=== PATIENT | male | born 1980 | race Two or more races ===

== ENCOUNTER 2017-03-20 13:35 | Inpatient (IN) | payer OTHER ==
[2017-03-20] MEDS ORDERED: SODIUM CHLORIDE 0.9% 1,000 ML IV STA (13:58)
--- NOTE | 2017-03-20 14:06 | ED ---
Alcohol HPI - General Chief Complaint: Alcohol Stated Complaint: Alcohol withdraw Time Seen by Provider: 03/20/17 13:35 Source: patient, EMS, RN notes reviewed Mode of arrival: EMS Limitations: no limitations - History of Present Illness Initial Comments: This is a 36-year-old male with a history of alcoholism who states he try to get into [facility] today for detox was sent here for evaluation. Several things of note the patient did recently donated kidney in [facility] in December of this past year. Additionally through the withdrawal from alcohol he normally drinks one half fists of vodka per day he ran out around 4 AM this morning he drank a bottle of hand customer relationship specialist (purell), 3 cups of the nature alcohol and a bottle of scope mouthwash. He also states she's feeling depressed and suicidal. He also feels as if he is going through shakes at this time. He feels very anxious. He was sent here for evaluation and possible clearance by [facility]. MD Complaint: alcohol withdrawal, alcohol dependence - Related Data Home Medications Medication Instructions Recorded Confirmed No Known Home Medications [No 03/20/17 03/20/17 Known Home Medications] Allergies Allergy/AdvReac Type Severity Reaction Status Date / Time No Known Allergies Allergy Unverified 03/20/17 14:10 Review of Systems ROS Statement: Those systems with pertinent positive or pertinent negative responses have been documented in the HPI. ROS Other: All systems not noted in ROS Statement are negative. Past Medical History Past Medical History: No Reported History History of Any Multi-Drug Resistant Organisms: None Reported Past Surgical History: Appendectomy Additional Past Surgical History / Comment(s): donated a kidney in 12/2016, skin grafts to right leg Past Psychological History: Anxiety, Bipolar, Depression, PTSD Smoking Status: Current every day smoker Past Alcohol Use History: Abuse, Daily Past Drug Use History: Marijuana General Exam - General Exam Comments Initial Comments: This is a well-developed well-nourished awake alert anxious appearing male Limitations: no limitations General appearance: alert, anxious Head exam: Present: atraumatic, normocephalic, normal inspection Eye exam: Present: PERRL, EOMI, other (Slight conjunctival injection) ENT exam: Present: normal exam, mucous membranes moist Neck exam: Present: normal inspection. Absent: tenderness, meningismus, lymphadenopathy Respiratory exam: Present: normal lung sounds bilaterally. Absent: respiratory distress, wheezes, rales, rhonchi, stridor Cardiovascular Exam: Present: normal rhythm, tachycardia GI/Abdominal exam: Present: tenderness (Epigastric tenderness palpation no definite guarding rebound masses or bruits) Rectal exam: Present: deferred Extremities exam: Present: full ROM, normal capillary refill, other (Fine tremor noted in both hands.). Absent: tenderness Back exam: Present: normal inspection Neurological exam: Present: alert, oriented X3, CN II-XII intact. Absent: motor sensory deficit Psychiatric exam: Present: depressed, anxious Skin exam: Present: warm, dry, intact, normal color. Absent: rash Course Vital Signs 03/20/17 03/20/17 13:42 15:04 Temperature 98.6 F Pulse Rate 108 H 109 H Respiratory 18 16 Rate Blood Pressure 168/101 155/89 O2 Sat by Pulse 95 96 Oximetry - Reevaluation(s) Reevaluation #1: 03/20/17 15:57 The patient did require some Ativan due to anxiety and shaking. Reevaluation #2: 03/20/17 16:05 The patient does appear to be resting comfortably he still tachycardic at about 116 -120 bpm. Reevaluation #3: 03/20/17 16:15 Poison control was contacted. They did recommend using the CIWA protocol. Due to the elevated liver enzymes Mucomyst is considered also. Medical Decision Making - Medical Decision Making Patient continues rest comfortably still somewhat tachycardic. Did discuss the findings with him. Patient will be admitted I did discuss case with Dr. De Dios. - Lab Data Result diagrams: 03/20/17 14:55 03/20/17 14:55 Lab Results 03/20/17 03/20/17 03/20/17 Range/Units 14:55 14:55 14:55 WBC 5.5 (3.8-10.6) k/uL RBC 5.28 (4.30-5.90) m/uL Hgb 16.2 (13.0-17.5) gm/dL Hct 48.4 (39.0-53.0) % MCV 91.5 (80.0-100.0) fL MCH 30.7 (25.0-35.0) pg MCHC 33.5 (31.0-37.0) g/dL RDW 15.4 (11.5-15.5) % Plt Count 221 (150-450) k/uL Neutrophils % 60 % Lymphocytes % 28 % Monocytes % 10 % Eosinophils % 1 % Basophils % 1 % Neutrophils # 3.3 (1.3-7.7) k/uL Lymphocytes # 1.6 (1.0-4.8) k/uL Monocytes # 0.5 (0-1.0) k/uL Eosinophils # 0.0 (0-0.7) k/uL Basophils # 0.0 (0-0.2) k/uL PT 10.9 (9.0-12.0) sec INR 1.1 (<1.2) Sodium 137 (137-145) mmol/L Potassium 4.4 (3.5-5.1) mmol/L Chloride 95 L (98-107) mmol/L Carbon Dioxide 24 (22-30) mmol/L Anion Gap 18 mmol/L BUN 16 (9-20) mg/dL Creatinine 1.11 (0.66-1.25) mg/dL Est GFR (MDRD) Af Amer >60 (>60 ml/min/1.73 sqM) Est GFR (MDRD) Non-Af >60 (>60 ml/min/1.73 sqM) Glucose 106 H (74-99) mg/dL Osmolality 380 H* (280-301) mosm/kg Calcium 9.3 (8.4-10.2) mg/dL Magnesium 2.1 (1.6-2.3) mg/dL Total Bilirubin 1.9 H (0.2-1.3) mg/dL AST 105 H (17-59) U/L ALT 117 H (21-72) U/L Alkaline Phosphatase 128 H (38-126) U/L Total Protein 7.2 (6.3-8.2) g/dL Albumin 4.8 (3.5-5.0) g/dL Amylase 103 (30-110) U/L Lipase 239 (23-300) U/L Salicylates <1.0 mg/dL Acetaminophen <10.0 ug/mL Serum Alcohol 11 mg/dL - EKG Data -: EKG Interpreted by Me EKG shows normal: sinus rhythm (Sinus tachycardia rate 105 appear interval 124 QRS duration 84 QT since QTC 340/449 st-t wave changes.) Critical Care Time Critical Care Time: Yes Critical Care Time: 31 minutes of critical care time which includes initial discussion with paramedics and monitoring the EMS run. History physical labs x-rays. Several reevaluation patient responsive therapy. Discussion regarding the poison control recommendations. Discussed with the admitting service Dr. feliciano above admission orders. Disposition Clinical Impression: Alcohol withdrawal syndrome, Depression, Suicidal thoughts Disposition: ADMITTED IP TO THIS [facility] Condition: Stable Referrals: None,Stated [Primary Care Provider] - 1-2 days
[2017-03-20] MEDS ORDERED: SODIUM CHLORIDE 0.9% 1,000 ML with MVI, ADULT NO.4 WITH VIT K 10 ML, THIAMINE 100 MG, F... IV ONE ×4 (14:30)
[2017-03-20 15:04] LABS: Basophils % (A) 1 %; Eosinophils % (A) 1 %; HCT 48.4 % (39.0-53.0); HGB 16.2 gm/dL (13.0-17.5); Lymphocytes # (A) 1.6 k/uL (1.0-4.8); Lymphocytes % (A) 28 %; MCH 30.7 pg (25.0-35.0); MCHC 33.5 g/dL (31.0-37.0); MCV 91.5 fL (80.0-100.0); Mean Platelet Volume 6.6; Monocytes # (A) 0.5 k/uL (0-1.0); Monocytes % (A) 10 %; Neutrophils # (A) 3.3 k/uL (1.3-7.7); Neutrophils % (A) 60 %; Platelet Count 221 k/uL (150-450); RBC 5.28 m/uL (4.30-5.90); RDW 15.4 % (11.5-15.5); WBC 5.5 k/uL (3.8-10.6)
[2017-03-20] MEDS ORDERED: LORazepam 2 MG/ML INJ IV STA (15:08)
[2017-03-20 15:14] LABS: INR 1.1 (<1.2); Prothrombin Time 10.9 sec (9.0-12.0)
[2017-03-20 15:16] LABS: ALT 117 U/L (21-72); AST 105 U/L (17-59); Acetaminophen <10.0 ug/mL; Albumin 4.8 g/dL (3.5-5.0); Alcohol 11 mg/dL; Alkaline Phosphatase 128 U/L (38-126); Amylase 103 U/L (30-110); Anion Gap 18 mmol/L; Blood Urea Nitrogen 16 mg/dL (9-20); Calcium 9.3 mg/dL (8.4-10.2); Carbon Dioxide 24 mmol/L (22-30); Chloride 95 mmol/L (98-107); Glucose 106 mg/dL (74-99); Lipase 239 U/L (23-300); Magnesium 2.1 mg/dL (1.6-2.3); Potassium 4.4 mmol/L (3.5-5.1); Salicylate <1.0 mg/dL; Sodium 137 mmol/L (137-145); Total Bilirubin 1.9 mg/dL (0.2-1.3); Total Protein 7.2 g/dL (6.3-8.2)
[2017-03-20] MEDS ORDERED: NALOXONE 0.4 MG/ML 1 ML VIAL IV PRN ×2 (16:39→18:05)
[2017-03-20] MEDS ORDERED: THIAMINE 100 MG/ML 2 ML VIAL IM STA (16:42)
[2017-03-20] MEDS ORDERED: LORazepam 2 MG/ML INJ IV PRN (16:42)
[2017-03-20] MEDS ORDERED: FOMEPIZOLE IVPB STA ×2 (17:07→17:14)
[2017-03-20] MEDS ORDERED: SODIUM CHLORIDE 0.9% IVPB STA (17:14)
[2017-03-20] MEDS ORDERED: ONDANSETRON 4 MG/2 ML VIAL IVP STA (18:18)
--- NOTE | 2017-03-20 18:21 | P.HPIM ---
History of Present Illness H&P Date: 03/20/17 Chief Complaint: Overdose 36-year-old male with a history of alcoholism who presented to emergency department for alcohol detoxification. He normally drinks one and a half fifth of vodka per day, he ran out of it around 4 AM this morning and then drank a bottle of hand outcomes analyst (purell), 3 cups of the denatured alcohol and a bottle of scope mouthwash. He denied taking those to attempt suicide, just to get the alcohol. When he was in the emergency department he had some bad shaking and was treated with benzodiazepine for ETOH withdrawal. Patient stated that he went through alcohol withdrawal about 2 weeks ago and he was in a hospital in [place] for that. Patient has an alcohol problem, has been drinking for 1 months but before that was sober for about 2 years. Of note patient recently donated a kidney in [facility] in December of this past year. Emergency physician called poison control and he was advised to just monitor the patient in the hospital, no specific treatment recommendations were advised. Review of Systems 12 point review of system was performed, negative except for HPI Past Medical History Past Medical History: No Reported History History of Any Multi-Drug Resistant Organisms: None Reported Past Surgical History: Appendectomy Additional Past Surgical History / Comment(s): donated a kidney in 12/2016, skin grafts to right leg Past Psychological History: Anxiety, Bipolar, Depression, PTSD Smoking Status: Current every day smoker Past Alcohol Use History: Abuse, Daily Past Drug Use History: Marijuana Medications and Allergies Home Medications Medication Instructions Recorded Confirmed Type No Known Home Medications [No 03/20/17 03/20/17 History Known Home Medications] Allergies Allergy/AdvReac Type Severity Reaction Status Date / Time No Known Allergies Allergy Unverified 03/20/17 14:10 Physical Exam Vitals: Vital Signs Temp Pulse Resp BP Pulse Ox 03/20/17 15:04 109 H 16 155/89 96 03/20/17 13:42 98.6 F 108 H 18 168/101 95 Intake and Output 03/20/17 03/20/17 03/20/17 06:59 14:59 22:59 Other: Weight 108.862 kg Patient Weight 03/21/17 06:59 Weight 108.862 kg Constitutional: No acute distress, conversant, pleasant Eyes:Anicteric sclerae, moist conjunctiva, no lid-lag, PERRLA, ENMT: Oropharynx clear, no erythema, exudates Neck: Supple, FROM, no masses, or JVD, No carotid bruits, No thyromegaly Lungs: Clear to auscultation, Clear to percussion, Normal respiratory effort, no accessory muscle use Cardiovascular: Tachycardic, regular, No murmurs, gallops, or rubs, No peripheral edema Abdominal: Soft, Nontender, no guarding, rebound or rigidity, Normoactive bowel sounds, No hepatomegaly, No splenomegaly, No palpable mass Skin: Normal temperature, tone, texture, turgor, no induration, No subcutaneous nodules, No rash, lesions, No ulcers Extremities: No digital cyanosis, No clubbing, Pedal pulses intact and symmetrical, Radial pulses intact and symmetrical, No calf tenderness Psychiatric: Alert and oriented to person, place and time, appropriate affect, intact judgement Neuro: Bilateral arms/hands tremors, muscles Strength 5/5 in all 4 extremities, Sensation to light touch grossly present throughout, Cranial nerves II-XII grossly intact, no focal sensory deficits Results CBC & Chem 7: 03/20/17 14:55 03/20/17 14:55 Labs: Abnormal Lab Results - Last 24 Hours (Table) 03/20/17 Range/Units 14:55 Chloride 95 L (98-107) mmol/L Glucose 106 H (74-99) mg/dL Osmolality 380 H* (280-301) mosm/kg Total Bilirubin 1.9 H (0.2-1.3) mg/dL AST 105 H (17-59) U/L ALT 117 H (21-72) U/L Alkaline Phosphatase 128 H (38-126) U/L Assessment and Plan Plan: #1 Multi-substance poisoning: Poison control called in the emergency department Monitor patient Labs reviewed. #2 Alcoholism/delirium tremens ETOH withdrawal protocol Multi vitamins Thiamine Folic acid #3 Questionable suicide attempt Psychiatry consult
[2017-03-20] MEDS: LORazepam 2 MG/ML INJ IV PRN ×2 (18:25→23:00)
[2017-03-20] MEDS: SODIUM CHLORIDE 0.9% 1,000 ML IV SCH (22:59)
[2017-03-20] MEDS: THIAMINE 100 MG TAB PO SCH (23:00)
[2017-03-21 01:50] LABS: Glucose,Whole Blood 110 mg/dL (75-99)
[2017-03-21] MEDS: SODIUM CHLORIDE 0.9% 1,000 ML IV SCH ×6 (04:42→21:47)
[2017-03-21] MEDS ORDERED: FOMEPIZOLE IVPB ONE ×2 (06:30→22:00)
[2017-03-21] MEDS ORDERED: SODIUM CHLORIDE 0.9% IVPB ONE ×2 (06:30→22:00)
[2017-03-21 08:20] LABS: Glucose,Whole Blood 96 mg/dL (75-99)
[2017-03-21 09:33] LABS: ALT 81 U/L (21-72); AST 65 U/L (17-59); Albumin 3.5 g/dL (3.5-5.0); Alkaline Phosphatase 86 U/L (38-126); Anion Gap 9 mmol/L; Blood Urea Nitrogen 15 mg/dL (9-20); Calcium 8.7 mg/dL (8.4-10.2); Carbon Dioxide 29 mmol/L (22-30); Chloride 101 mmol/L (98-107); Glucose 101 mg/dL (74-99); Magnesium 1.7 mg/dL (1.6-2.3); Phosphorus 3.4 mg/dL (2.5-4.5); Sodium 139 mmol/L (137-145); Total Protein 5.5 g/dL (6.3-8.2)
[2017-03-21] MEDS: LORazepam 2 MG/ML INJ IV PRN ×4 (09:43→23:28)
[2017-03-21 09:47] LABS: Anisocytosis Slight; Basophils % (A) 1 %; Eosinophils # (A) 0.1 k/uL (0-0.7); Eosinophils % (A) 1 %; HCT 38.9 % (39.0-53.0); Lymphocytes # (A) 1.5 k/uL (1.0-4.8); Lymphocytes % (A) 26 %; MCH 30.5 pg (25.0-35.0); MCHC 32.8 g/dL (31.0-37.0); MCV 92.9 fL (80.0-100.0); Mean Platelet Volume 7.4; Monocytes # (A) 0.5 k/uL (0-1.0); Monocytes % (A) 9 %; Neutrophils # (A) 3.7 k/uL (1.3-7.7); Neutrophils % (A) 63 %; Platelet Count 163 k/uL (150-450); RBC 4.19 m/uL (4.30-5.90); RDW 16.2 % (11.5-15.5); WBC 5.9 k/uL (3.8-10.6)
[2017-03-21 09:52] LABS: HGB 12.8 gm/dL (13.0-17.5)
[2017-03-21] MEDS ORDERED: CALCIUM CARBONATE 500 MG CHEWABLE PO PRN (10:14)
[2017-03-21] MEDS ORDERED: ACETAMINOPHEN TAB 325 MG TAB PO PRN (10:14)
--- NOTE | 2017-03-21 10:59 | P.NPCON ---
History of Present Illness - Reason for Consult chronic renal failure - History of Present Illness Reason for consultation: June 30 all poisoning History of present illness: Patient is a 77-year-old male seen in renal consultation for methanol poisoning. Patient states he usually drinks fifth and a half of vodka daily. 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 Patient's currently maintained on normal saline at 1 25 mL an hour. He did receive a dose of fomepizole last night and a second dose this morning. Poison control was notified as well. His methanol level came back as greater than 200. Acetone is noted to be positive. Patient was noted to have an anion gap on admission and his serum osmolality was elevated at 380. His anion gap today is 9. Creatinine is relatively stable at 1.18. No evidence of acidosis. His bicarb level is 29. He denies any vomiting or diarrhea. Denies chest pain or shortness of breath. He has been voiding. Patient does have history of chronic kidney disease stage II secondary to solitary kidney. Patient states he donated his kidney to his brother in December 2016. No history of diabetes or hypertension. Vital signs are stable. General: The patient appeared well nourished and normally developed. HEENT: Head exam is unremarkable. Neck is without jugular venous distension. LUNGS: Lungs are clear to auscultation and percussion. Breath sounds decreased. HEART: Rate and Rhythm are regular. First and second heart sounds normal. No murmurs, rubs or gallops. ABDOMEN: Abdominal exam reveals normal bowel sounds. Non-tender and non- distended. No evidence of peritonitis. EXTREMITITES: No clubbing, cyanosis, or edema. Past Medical History Past Medical History: No Reported History History of Any Multi-Drug Resistant Organisms: None Reported Past Surgical History: Appendectomy Additional Past Surgical History / Comment(s): donated a kidney in 12/2016, skin grafts to right leg Past Anesthesia/Blood Transfusion Reactions: No Reported Reaction Past Psychological History: Anxiety, Bipolar, Depression, PTSD Smoking Status: Current every day smoker Past Alcohol Use History: Abuse, Daily Past Drug Use History: Marijuana - Past Family History Father Family Medical History: Cancer, Coronary Artery Disease (CAD) Additional Family Medical History / Comment(s): non hodgkins lymphoma, Brother(s) Additional Family Medical History / Comment(s): IGA Nephropathy Medications and Allergies Home Medications Medication Instructions Recorded Confirmed Type No Known Home Medications [No 03/20/17 03/20/17 History Known Home Medications] Allergies Allergy/AdvReac Type Severity Reaction Status Date / Time No Known Allergies Allergy Unverified 03/20/17 14:10 Physical Exam Vitals: Vital Signs Temp Pulse Pulse Resp BP BP BP 03/21/17 08:00 91 15 03/21/17 07:00 97.5 F L 91 15 140/83 03/20/17 21:50 97.8 F 82 17 146/86 03/20/17 18:13 110 H 22 148/84 03/20/17 15:04 109 H 16 155/89 03/20/17 13:42 98.6 F 108 H 18 168/101 Pulse Ox 03/21/17 08:00 03/21/17 07:00 98 03/20/17 21:50 96 03/20/17 18:13 95 03/20/17 15:04 96 03/20/17 13:42 95 Intake and Output 03/20/17 03/21/17 03/21/17 22:59 06:59 14:59 Other: Voiding Method Urinal Urinal # Voids 1 Results - Lab Results Most recent lab results Calcium 8.7 mg/dL (8.4-10.2) 03/21/17 08:58 Phosphorus 3.4 mg/dL (2.5-4.5) 03/21/17 08:58 Magnesium 1.7 mg/dL (1.6-2.3) 03/21/17 08:58 03/21/17 08:58 03/21/17 08:58 Assessment and Plan Plan: Assessment: #1. Acute methanol poisoning with methanol level greater than 200. His osmolar gap was also significantly elevated upon admission near 90. Patient did receive a dose of fomepizole yesterday and again this morning. Poison control has been notified. #2. 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 Patient donated his kidney in December 2016 to his brother. #3. Elevated anion gap due to methanol poisoning. Plan: Vascular surgery has been consulted for urgent hemodialysis today. Continue with fomepizole per poison control recommendations. Repeat methanol level postdialysis today. Avoid nephrotoxic agents. Thank you for the consultation. I will continue to follow the patient with you during his hospital stay.
[2017-03-21] MEDS: THIAMINE 100 MG TAB PO SCH ×2 (11:21→16:09)
[2017-03-21] MEDS: FOLIC ACID 1 MG TAB PO SCH (11:22)
[2017-03-21] MEDS ORDERED: IV FLUID CONTINUATION 1,000 ML IV ONE (11:37)
--- NOTE | 2017-03-21 11:37 | P.PN ---
Subjective Progress Note Date: 03/21/17 (delayed charting patient seen at 1010am) Principal diagnosis: overdose patient is a 36-year-old male past medical history of alcoholism and tobacco abuse who presented to the emergency department from [facility] for evaluation. The patient had draining forehead, and when he ran out he drink a bottle of hand seasonal warehouse associate, 3 cups of nature alcohol, and a bottle of scope mouthwash. In the ER he underwent an extensive evaluation. He was noted to have elevated serum osmolality as well as positive anion gap. He did not have any acidosis. His vital signs were stable. Laboratory analysis is otherwise unremarkable. Poison control was contacted who recommended obtaining an acetone level, ethanol level, methanol level, and ethylene glycol level. he was started on IV fluids and fomepizole. He was admitted for further monitoring and care. he has been drinking 1-1/2 fifths of vodka daily for the last 6 weeks. This morning his methanol level came back at greater than 200 and he has found to have a positive acetone. Poison control contacted us and recommended urgent hemodialysis as well as continued fomepizole dosing. Patient seen and examined at bedside. He has some nausea and is feeling tired. He is alert and oriented 3. He is having some blurry vision but denies loss of vision and yellowing of vision. He has no other complaints currently. He denies headache, shortness of breath, chest pain, and diarrhea. He states he has tried to quit drinking several times in the last month but has had signs of withdrawal and had to go to the hospital to get medicated. He has never had a seizure in the past. Patient infromed that he likely needs HD and he is agreeable. Objective - Vital Signs Vital signs: Vital Signs Temp 97.5 F L 03/21/17 07:00 Pulse 91 03/21/17 08:00 Resp 15 03/21/17 08:00 BP 140/83 03/21/17 07:00 Pulse Ox 98 03/21/17 07:00 Intake & Output 03/20/17 03/21/17 03/21/17 18:59 06:59 18:59 Weight 108.862 kg Other: Voiding Method Urinal Urinal # Voids 1 - Exam General: non toxic, no distress, appears at stated age Derm: warm, dry Head: atraumatic, normocephalic, symmetric Eyes: EOMI, no lid lag, anicteric sclera, PERRL Mouth: no lip lesion, mucus membranes moist Cardiovascular: S1S2 reg, no murmur, positive posterior tibial pulse bilateral, Lungs: CTA bilateral, no rhonchi, no rales , no accessory muscle use Abdominal: soft, nontender to palpation, no guarding, no appreciable organomegaly Ext: no gross muscle atrophy, no edema, no contractures Neuro: CN II-XI grossly intact, no focal neuro deficits Psych: Alert, oriented, flat affect - Labs CBC & Chem 7: 03/21/17 08:58 03/21/17 08:58 Labs: Abnormal Lab Results - Last 24 Hours (Table) 03/20/17 03/21/17 03/21/17 Range/Units 14:55 01:46 08:58 RBC 4.19 L (4.30-5.90) m/uL Hgb 12.8 L D (13.0-17.5) gm/dL Hct 38.9 L (39.0-53.0) % RDW 16.2 H (11.5-15.5) % Chloride 95 L (98-107) mmol/L Glucose 106 H (74-99) mg/dL POC Glucose (mg/dL) 110 H (75-99) mg/dL Osmolality 380 H* (280-301) mosm/kg Total Bilirubin 1.9 H (0.2-1.3) mg/dL AST 105 H (17-59) U/L ALT 117 H (21-72) U/L Alkaline Phosphatase 128 H (38-126) U/L Total Protein (6.3-8.2) g/dL 03/21/17 Range/Units 08:58 RBC (4.30-5.90) m/uL Hgb (13.0-17.5) gm/dL Hct (39.0-53.0) % RDW (11.5-15.5) % Chloride (98-107) mmol/L Glucose 101 H (74-99) mg/dL POC Glucose (mg/dL) (75-99) mg/dL Osmolality (280-301) mosm/kg Total Bilirubin 2.0 H (0.2-1.3) mg/dL AST 65 H (17-59) U/L ALT 81 H (21-72) U/L Alkaline Phosphatase (38-126) U/L Total Protein 5.5 L (6.3-8.2) g/dL Assessment and Plan Assessment: acute methanol toxicity, level greater than 200 - spoke with poison control they recommend stat hemodialysis, Dr. Davis contacted - has received 2 doses of omeprazole -Repeat methanol level 2 hours after hemodialysis -We will dose and that was all during dialysis according to poison control guidelines Acute overdose with methanol and isopropyl alcohol -Supportive care -Hemodialysis as above -Await psychiatry evaluation EtOH abuse with impending DTs -[facility] protocol -Thiamine replacement -Seizure precautions Tobacco abuse - nicotine replacement - cessation Alcoholic heapatitis - improving - follow liver function in AM DVT prophylaxis: heparin sc Discussed with: Patient, nursing, Nephrology Anticipated discharge: 24-[address]: home vs psych A total of 45 minutes was spent on the care of this complex patient more than 50 % of the time was spent in counseling and care coordination.
[2017-03-21] MEDS ORDERED: MIDAZOLAM 2 MG/2 ML VIAL ONE (11:58)
[2017-03-21] MEDS ORDERED: LIDOCAINE 2% INJ 20 MG/ML SQ ONE ×2 (12:00→17:34)
[2017-03-21] MEDS ORDERED: MIDAZOLAM 2 MG/2 ML VIAL IV ONE (12:01)
[2017-03-21] MEDS ORDERED: HEPARIN SODIUM 1,000 UN/ML (10ML VL) ONE (12:08)
[2017-03-21] MEDS ORDERED: HEPARIN SODIUM 1,000 UN/ML (10ML VL) IV ONE (12:12)
[2017-03-21 12:48] LABS: Glucose,Whole Blood 85 mg/dL (75-99)
--- NOTE | 2017-03-21 14:49 | CONS ---
DATE OF CONSULTATION: 03/21/2017 This is a 36-year-old gentleman I was consulted for placement of urgent dialysis catheter. Patient is on methanol poisoning. 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 Patient is under care of Nephrology and I was consulted for urgent dialysis catheter. He has an anion gap on admission his serum osmolality was elevated 380. His anion gap is 9. His creatinine is 1.18. No vomiting or diarrhea. PHYSICAL EXAMINATION: Neck is supple. No bruit appreciated. Chest is clear to auscultation. Abdomen is soft, abdomen is nontender. Brachial, radial, and femoral pulses are present. SURGICAL HISTORY: Patient had appendectomy done in the past. PLAN: Placement of the dialysis catheter. Risks and complications have been discussed. MMVIVIANAL / IJN: [id number] / MTDD
[2017-03-21 15:01] LABS: Amphetamine Screen,Urine Not Detected (NotDetected); Barbiturate Screen,Urine Not Detected (NotDetected); Benzodiazepines Screen,Urine Detected (NotDetected); Cocaine Screen,Urine Not Detected (NotDetected); Methadone Screen, Urine Not Detected (NotDetected); Opiate Screen,Urine Not Detected (NotDetected); Oxycodone Screen, Urine Not Detected (NotDetected); Phencyclidine Screen,Urine Not Detected (NotDetected); Tricyclic Antidepressant,Urine Not Detected (NotDetected); Urn Cannabinoid Scrn Not Detected (NotDetected)
[2017-03-21] MEDS ORDERED: FOMEPIZOLE IVPB STA (15:23)
[2017-03-21] MEDS: SODIUM CHLORIDE 0.9% IVPB STA ×2 (16:06→17:56)
[2017-03-21] MEDS: HEPARIN SODIUM,PORCINE 5,000 UNIT/ML 1 ML VIAL SQ SCH ×2 (16:06→23:39)
[2017-03-21] MEDS: FOMEPIZOLE IVPB STA ×2 (16:06→17:56)
[2017-03-21 17:35] LABS: Glucose,Whole Blood 120 mg/dL (75-99)
--- NOTE | 2017-03-21 18:25 | PCN ---
PROCEDURE NOTE PREOP DIAGNOSIS: Methanol poisoning. PROCEDURE: Placement of the dialysis catheter right femoral approach. DESCRIPTION OF PROCEDURE: The patient was brought to the optical laboratory technician. Right groin was prepped and draped applied in a sterile manner. 1% lidocaine was infiltrated. Micropuncture needle introduced right common femoral vein. Micropuncture guidewire was passed and 4 Telugu dilator advanced over top of the guidewire. Then, we passed a regular guidewire and dilator was advanced and dialysis catheter was advanced on the top of the guidewire. We checked on fluoroscopy, is in good position. Flushed with heparin saline and hep-locked. Secured with 3-0 nylon. Dressing applied. Patient tolerated the procedure well. MMODL / IJN: [id number] /
--- NOTE | 2017-03-21 19:35 | IR ---
EXAMINATION TYPE: IR cvc insert non tunneled DATE OF EXAM: 03/21/2017 COMPARISON: NONE HISTORY: Dialysis catheter placement Fluoroscopy support supplied to the referring clinician. See dictated report from vascular surgery, 0.3 minutes fluoroscopy time, 290 intraoperative C-arm images document the procedure
[2017-03-21] MEDS ORDERED: SODIUM CHLORIDE 0.9% IVPB SCH (20:00)
[2017-03-21] MEDS ORDERED: FOMEPIZOLE IVPB SCH ×2 (20:00)
[2017-03-21 20:43] LABS: Glucose,Whole Blood 109 mg/dL (75-99)
[2017-03-22] MEDS: LEUCOVORIN IV SCH ×6 (00:57→20:08)
[2017-03-22 02:04] LABS: Glucose,Whole Blood 109 mg/dL (75-99)
[2017-03-22] MEDS: SODIUM CHLORIDE 0.9% 1,000 ML IV SCH ×4 (04:15→20:12)
[2017-03-22 05:59] LABS: HGB 12.2 gm/dL (13.0-17.5); MCH 30.3 pg (25.0-35.0); MCHC 32.1 g/dL (31.0-37.0); MCV 94.3 fL (80.0-100.0); Mean Platelet Volume 6.9; Platelet Count 140 k/uL (150-450); RBC 4.04 m/uL (4.30-5.90); RDW 15.1 % (11.5-15.5); WBC 4.3 k/uL (3.8-10.6)
[2017-03-22 06:10] LABS: ALT 72 U/L (21-72); AST 69 U/L (17-59); Albumin 3.4 g/dL (3.5-5.0); Alkaline Phosphatase 65 U/L (38-126); Anion Gap 9 mmol/L; Blood Urea Nitrogen 8 mg/dL (9-20); Calcium 8.9 mg/dL (8.4-10.2); Carbon Dioxide 25 mmol/L (22-30); Chloride 103 mmol/L (98-107); Glucose 95 mg/dL (74-99); Potassium 3.9 mmol/L (3.5-5.1); Sodium 137 mmol/L (137-145); Total Bilirubin 0.9 mg/dL (0.2-1.3); Total Protein 5.4 g/dL (6.3-8.2)
--- NOTE | 2017-03-22 07:08 | PCN ---
PROCEDURE NOTE PREOPERATIVE DIAGNOSIS: Methanol poisoning. PROCEDURE: Placement of a 27 cm dialysis catheter. PROCEDURE DESCRIPTION: This patient had a dialysis catheter placed in the morning. This catheter was nonfunctional. We brought the patient back to the [facility]. Right groin was prepped and draped in the usual manner with 1% lidocaine and the catheter guidewire was passed. The old catheter was removed. We placed 27 cm dialysis catheter. Tip of the catheter was in the inferior vena cava. Flushed with heparin saline and hep-locked and secured with 3-0 nylon. Dressing applied. Patient tolerated the procedure well. MMODL / IJN: [id number] /
[2017-03-22 07:41] LABS: Glucose,Whole Blood 101 mg/dL (75-99)
--- NOTE | 2017-03-22 08:00 | IR ---
EXAMINATION TYPE: IR cvc insert non tunneled DATE OF EXAM: 03/21/2017 CLINICAL HISTORY: Dialysis access, renal failure. TECHNIQUE: Fluoroscopy. COMPARISON: None. FINDINGS: Fluoroscopic guidance was provided during right femoral venous catheter insertion procedur e performed by Dr. Gustafson. A total of 18 seconds of fluoroscopic time was utilized during the proce dure and 4 spot images are acquired. Images acquired show access with guidewire and subsequent cathet er placement right femoral region for dialysis. IMPRESSION: As Above.
[2017-03-22] MEDS: LORazepam 2 MG/ML INJ IV PRN ×4 (08:13→22:52)
[2017-03-22] MEDS: HEPARIN SODIUM,PORCINE 5,000 UNIT/ML 1 ML VIAL SQ SCH ×2 (08:21→16:02)
--- NOTE | 2017-03-22 08:22 | P.PN ---
Subjective Progress Note Date: 03/22/17 Principal diagnosis: overdose Patient is a 36-year-old male past medical history of alcoholism and tobacco abuse who presented to the emergency department from [place] for evaluation. The patient had been drinking Vodka and when he ran out he drink a bottle of hand sample preparation supervisor, 3 cups of natures alcohol, and a bottle of scope mouthwash. In the ER he underwent an extensive evaluation. He was noted to have elevated serum osmolality as well as positive anion gap. He did not have any acidosis. His vital signs were stable. Laboratory analysis is otherwise unremarkable. Poison control was contacted who recommended obtaining an acetone level, ethanol level, methanol level, and ethylene glycol level. he was started on IV fluids and fomepizole. He was admitted for further monitoring and care. he has been drinking 1-1/2 fifths of vodka daily for the last 6 weeks. The morning of 03/21 his methanol level came back at greater than 200 and he has found to have a positive acetone. Poison control contacted us and recommended urgent hemodialysis as well as continued fomepizole dosing. He underwent HD on 03/21. He is methanol level was 77 on 03/22 and HD was again planned. Patient seen and examined at bedside. He states that his blurry vision is getting better. He is feeling less lethargic today. He denies any nausea. He complains of continued all over cramping. He denies headache. He has not had any seizures, tremor, hallucinations. Informed of elevated methanol level and need for HD again today. Objective - Vital Signs Vital signs: Vital Signs Temp 97.4 F L 03/22/17 07:00 Pulse 75 03/22/17 07:00 Resp 20 03/22/17 07:00 BP 139/70 03/22/17 07:00 Pulse Ox 98 03/22/17 07:00 Intake & Output 03/21/17 03/22/17 03/22/17 18:59 06:59 18:59 Intake Total 580 Output Total 1900 1400 Balance -1320 -1400 Intake: IV 100 Oral 480 Output: Urine 1900 1400 Other: Voiding Method Urinal Urinal # Voids 1 1,000 - Exam General: non toxic, no distress, appears at stated age Derm: warm, dry Head: atraumatic, normocephalic, symmetric Eyes: EOMI, no lid lag, anicteric sclera, Mouth: no lip lesion, mucus membranes moist Cardiovascular: S1S2 reg, no murmur, positive posterior tibial pulse bilateral, Lungs: CTA bilateral, no rhonchi, no rales , no accessory muscle use Abdominal: soft, nontender to palpation, no guarding, no appreciable organomegaly Ext: no gross muscle atrophy, no edema, no contractures Neuro: CN II-XI grossly intact, no focal neuro deficits Psych: Alert, oriented, flat affect - Labs CBC & Chem 7: 03/22/17 05:32 03/22/17 05:32 Labs: Abnormal Lab Results - Last 24 Hours (Table) 03/21/17 03/21/17 03/21/17 Range/Units 08:58 08:58 13:05 RBC 4.19 L (4.30-5.90) m/uL Hgb 12.8 L D (13.0-17.5) gm/dL Hct 38.9 L (39.0-53.0) % RDW 16.2 H (11.5-15.5) % Plt Count (150-450) k/uL BUN (9-20) mg/dL Glucose 101 H (74-99) mg/dL POC Glucose (mg/dL) (75-99) mg/dL Total Bilirubin 2.0 H (0.2-1.3) mg/dL AST 65 H (17-59) U/L ALT 81 H (21-72) U/L Total Protein 5.5 L (6.3-8.2) g/dL Albumin (3.5-5.0) g/dL U Benzodiazepines Scrn Detected H (NotDetected) 03/21/17 03/21/17 03/22/17 Range/Units 17:08 20:42 01:52 RBC (4.30-5.90) m/uL Hgb (13.0-17.5) gm/dL Hct (39.0-53.0) % RDW (11.5-15.5) % Plt Count (150-450) k/uL BUN (9-20) mg/dL Glucose (74-99) mg/dL POC Glucose (mg/dL) 120 H 109 H 109 H (75-99) mg/dL Total Bilirubin (0.2-1.3) mg/dL AST (17-59) U/L ALT (21-72) U/L Total Protein (6.3-8.2) g/dL Albumin (3.5-5.0) g/dL U Benzodiazepines Scrn (NotDetected) 03/22/17 03/22/17 03/22/17 Range/Units 05:32 05:32 07:33 RBC 4.04 L (4.30-5.90) m/uL Hgb 12.2 L (13.0-17.5) gm/dL Hct 38.0 L (39.0-53.0) % RDW (11.5-15.5) % Plt Count 140 L (150-450) k/uL BUN 8 L (9-20) mg/dL Glucose (74-99) mg/dL POC Glucose (mg/dL) 101 H (75-99) mg/dL Total Bilirubin (0.2-1.3) mg/dL AST 69 H (17-59) U/L ALT (21-72) U/L Total Protein 5.4 L (6.3-8.2) g/dL Albumin 3.4 L (3.5-5.0) g/dL U Benzodiazepines Scrn (NotDetected) Assessment and Plan Assessment: acute methanol toxicity, level greater than 200 on admission - HD 03/21 and again today - has received 4 doses of fomepizole and will recieve 5th at 1200 - Repeat methanol level 2 hours after hemodialysis - We will dose fomepizole during dialysis according to poison control guidelines Acute overdose with methanol and isopropyl alcohol -Supportive care -Hemodialysis as above -Await psychiatry evaluation - Suicide precuations EtOH abuse with impending DTs -[facility] protocol -Thiamine replacement, folic acid replacement -Seizure precautions Tobacco abuse - nicotine replacement - cessation Alcoholic heapatitis, improving - follow liver function in AM DVT prophylaxis: heparin sc Discussed with: Patient, nursing, Nephrology Anticipated discharge: 24-[address]: home vs psych A total of 35 minutes was spent on the care of this complex patient more than 50 % of the time was spent in counseling and care coordination.
[2017-03-22] MEDS: THIAMINE 100 MG TAB PO SCH ×2 (11:58→17:06)
[2017-03-22] MEDS: FOLIC ACID 1 MG TAB PO SCH (11:58)
[2017-03-22] MEDS ORDERED: FOMEPIZOLE IVPB SCH (12:00)
[2017-03-22] MEDS ORDERED: SODIUM CHLORIDE 0.9% IVPB SCH (12:00)
[2017-03-22 12:13] LABS: Glucose,Whole Blood 101 mg/dL (75-99)
--- NOTE | 2017-03-22 12:28 | P.PN ---
Subjective patient is seen in follow-up for methanol poisoning. Patient drank a bottle of mouthwash as well as hand kindergartners helper. His methanol level was greater than 200. He did undergo emergent hemodialysis yesterday and will undergo second treatment today as his methanol level is still 77. His creatinine is 1.0 today. He has been voiding. No hematuria or dysuria. Currently awake and alert. No vomiting or diarrhea. Oral intake is fair. He is also maintained on omeprazole. Poison control is aware. Vital signs are stable. General: The patient appeared well nourished and normally developed. HEENT: Head exam is unremarkable. Neck is without jugular venous distension. LUNGS: Lungs are clear to auscultation and percussion. Breath sounds decreased. HEART: Rate and Rhythm are regular. First and second heart sounds normal. No murmurs, rubs or gallops. ABDOMEN: Abdominal exam reveals normal bowel sounds. Non-tender and non- distended. No evidence of peritonitis. EXTREMITITES: No clubbing, cyanosis, or edema. Objective - Vital Signs Vital signs: Vital Signs Temp 97.4 F L 03/22/17 07:00 Pulse 75 03/22/17 08:00 Resp 20 03/22/17 08:00 BP 139/70 03/22/17 07:00 Pulse Ox 98 03/22/17 07:00 Intake & Output 03/21/17 03/22/17 03/22/17 18:59 06:59 18:59 Intake Total 580 Output Total 1900 1400 Balance -1320 -1400 Intake: IV 100 Oral 480 Output: Urine 1900 1400 Other: Voiding Method Urinal Urinal Urinal # Voids 1 1,000 - Labs CBC & Chem 7: 03/22/17 05:32 03/22/17 05:32 Labs: Abnormal Lab Results - Last 24 Hours (Table) 03/21/17 03/21/17 03/21/17 Range/Units 13:05 17:08 20:42 RBC (4.30-5.90) m/uL Hgb (13.0-17.5) gm/dL Hct (39.0-53.0) % Plt Count (150-450) k/uL BUN (9-20) mg/dL POC Glucose (mg/dL) 120 H 109 H (75-99) mg/dL AST (17-59) U/L Total Protein (6.3-8.2) g/dL Albumin (3.5-5.0) g/dL U Benzodiazepines Scrn Detected H (NotDetected) 03/22/17 03/22/17 03/22/17 Range/Units 01:52 05:32 05:32 RBC 4.04 L (4.30-5.90) m/uL Hgb 12.2 L (13.0-17.5) gm/dL Hct 38.0 L (39.0-53.0) % Plt Count 140 L (150-450) k/uL BUN 8 L (9-20) mg/dL POC Glucose (mg/dL) 109 H (75-99) mg/dL AST 69 H (17-59) U/L Total Protein 5.4 L (6.3-8.2) g/dL Albumin 3.4 L (3.5-5.0) g/dL U Benzodiazepines Scrn (NotDetected) 03/22/17 03/22/17 Range/Units 07:33 11:57 RBC (4.30-5.90) m/uL Hgb (13.0-17.5) gm/dL Hct (39.0-53.0) % Plt Count (150-450) k/uL BUN (9-20) mg/dL POC Glucose (mg/dL) 101 H 101 H (75-99) mg/dL AST (17-59) U/L Total Protein (6.3-8.2) g/dL Albumin (3.5-5.0) g/dL U Benzodiazepines Scrn (NotDetected) Assessment and Plan Plan: Assessment: #1. Acute methanol poisoning with methanol level greater than 200. His osmolar gap was also significantly elevated upon admission near 90. Also maintained on fomepizole per poison control recommendations. #2. 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 Patient donated his kidney in December 2016 to his brother. #3. Elevated anion gap due to methanol poisoning. improved. Plan: Second treatment of hemodialysis today. Continue with fomepizole per poison control recommendations. Repeat methanol level postdialysis today. Avoid nephrotoxic agents. Continue normal saline to be run at 150 mL an hour for now.
[2017-03-22 17:23] LABS: Glucose,Whole Blood 73 mg/dL (75-99)
[2017-03-22] MEDS ORDERED: FOMEPIZOLE IVPB ONE ×2 (18:00)
[2017-03-22] MEDS ORDERED: SODIUM CHLORIDE 0.9% IVPB ONE (18:00)
[2017-03-22 20:47] LABS: Glucose,Whole Blood 86 mg/dL (75-99)
[2017-03-22] MEDS: ONDANSETRON 4 MG/2 ML VIAL IVP PRN (22:39)
[2017-03-23] MEDS: HEPARIN SODIUM,PORCINE 5,000 UNIT/ML 1 ML VIAL SQ SCH ×4 (00:36→23:50)
[2017-03-23 02:07] LABS: Glucose,Whole Blood 87 mg/dL (75-99)
[2017-03-23] MEDS: SODIUM CHLORIDE 0.9% 1,000 ML IV SCH ×3 (05:40→18:10)
[2017-03-23] MEDS: FOMEPIZOLE 1,500 MG in SODIUM CHLORIDE 0.9% 100 ML IVPB SCH ×2 (06:18→18:10)
--- NOTE | 2017-03-23 07:55 | CONS ---
CONSULTATION DATE OF CONSULTATION: 03/21/2017. PURPOSE OF CONSULTATION: Evaluate for alcohol dependence and acute alcohol withdrawal. HISTORY OF PRESENT ILLNESS: The patient is a 36-year-old male with a history of alcoholism. He presented to the emergency room for detoxification. He reports drinking 1-1/2 fifths of vodka per day. He ran out of vodka and drank hand methods time analyst denatured alcohol and Scope mouthwash as alternative alcohol sources. The patient reported that he has not been drinking alcohol for 2 years, though started drinking again 1 month ago drinking 1-1/2 fifths of vodka per day. He has been initiated on hemodialysis. He is being managed on alcohol withdrawal protocol. CIWA scores have been below 10. He has had moderate elevation of systolic blood pressure. He has p.r.n. Ativan ordered for withdrawal signs. Drug screen is negative for any abusive substances other than benzodiazepines. Serum alcohol on 03/20/2017 at 2:55 pm was 11. Hemodialysis has been initiated. MENTAL STATUS: Patient was in bed lying down. He was sleeping, but arousable. He answered questions with brief responses. His thoughts were clear. His affect was blunted. His mood quiet. He did not appear to be significantly distressed. ASSESSMENT: This is a 36-year-old male is diagnosed with alcohol dependence and acute alcohol withdrawal, multisubstance poisoning. He is being monitored for risks for delirium tremens. There are some questions about his drinking history, if he had been free of alcohol and other abuses substances for 2 years, it is not clear that he would have the tolerance to drink 1-1/2 fifth of alcohol on a daily basis just over the last month. At this point, given that he has been initiated on hemodialysis and continued on a withdrawal protocol, there is a little additional input that I can offer at this time from a psychiatric standpoint. I will order a GGT. I will continue to follow. MMODL / IJN: [id number] /
[2017-03-23 08:07] LABS: HCT 38.4 % (39.0-53.0); HGB 12.8 gm/dL (13.0-17.5); MCH 30.9 pg (25.0-35.0); MCHC 33.4 g/dL (31.0-37.0); MCV 92.4 fL (80.0-100.0); Mean Platelet Volume 7.9; Platelet Count 138 k/uL (150-450); RBC 4.16 m/uL (4.30-5.90); WBC 4.2 k/uL (3.8-10.6)
[2017-03-23 08:08] LABS: Glucose,Whole Blood 87 mg/dL (75-99)
[2017-03-23 08:21] LABS: ALT 77 U/L (21-72); AST 77 U/L (17-59); Albumin 3.7 g/dL (3.5-5.0); Alkaline Phosphatase 80 U/L (38-126); Anion Gap 9 mmol/L; Blood Urea Nitrogen 7 mg/dL (9-20); Calcium 9.2 mg/dL (8.4-10.2); Carbon Dioxide 27 mmol/L (22-30); Chloride 103 mmol/L (98-107); GGT 305 U/L (15-73); Glucose 93 mg/dL (74-99); Potassium 3.7 mmol/L (3.5-5.1); Sodium 139 mmol/L (137-145); Total Bilirubin 0.7 mg/dL (0.2-1.3); Total Protein 5.7 g/dL (6.3-8.2)
[2017-03-23] MEDS: LORazepam 2 MG/ML INJ IV PRN ×9 (09:01→23:45)
[2017-03-23] MEDS: ONDANSETRON 4 MG/2 ML VIAL IVP PRN ×2 (09:01→15:00)
--- NOTE | 2017-03-23 10:38 | P.PN ---
Subjective Progress Note Date: 03/23/17 Principal diagnosis: Nausea Patient is a 36-year-old male past medical history of alcoholism and tobacco abuse who presented to the emergency department from [place] for evaluation. The patient had been drinking Vodka and when he ran out he drink a bottle of hand television receiver analyzer, 3 cups of natures alcohol, and a bottle of scope mouthwash. In the ER he underwent an extensive evaluation. He was noted to have elevated serum osmolality as well as positive anion gap. He did not have any acidosis. His vital signs were stable. Laboratory analysis is otherwise unremarkable. Poison control was contacted who recommended obtaining an acetone level, ethanol level, methanol level, and ethylene glycol level. he was started on IV fluids and fomepizole. He was admitted for further monitoring and care. he has been drinking 1-1/2 fifths of vodka daily for the last 6 weeks. The morning of 03/21 his methanol level came back at greater than 200 and he has found to have a positive acetone. Poison control contacted us and recommended urgent hemodialysis as well as continued fomepizole dosing. He underwent HD on 03/21. He is methanol level was 77 on 03/22 and HD was again planned. Methanol level on 03/23 was 29. His blurry vision has resolved. Discussed with poison control morning of 03/23 fomepizole and lucovorin until methanol level is less than 20. Patient seen and examined at bedside. He states that his blurry vision resolved. More awake today. Muscles feels sore but it is a different soreness from 2 days ago. He complains of nausea and decreased appetite. He denies headache. He has not had any seizures, tremor, hallucinations. Informed that he does not need HD again today. We also discussed possible pivot maker sides effects of visual changes and possible parkinsonism type effects. Objective - Vital Signs Vital signs: Vital Signs Temp 97.3 F L 03/23/17 07:00 Pulse 93 03/23/17 07:00 Resp 16 03/23/17 07:00 BP 126/68 03/23/17 07:00 Pulse Ox 95 03/23/17 07:00 Intake & Output 03/22/17 03/23/17 03/23/17 18:59 06:59 18:59 Output Total 2300 1250 Balance -2300 -1250 Output: Urine 2300 1250 Other: Voiding Method Urinal Toilet Urinal - Exam General: non toxic, no distress, appears at stated age Derm: warm, dry Head: atraumatic, normocephalic, symmetric Eyes: EOMI, no lid lag, anicteric sclera, Mouth: no lip lesion, mucus membranes moist Cardiovascular: S1S2 reg, no murmur, positive posterior tibial pulse bilateral, Lungs: CTA bilateral, no rhonchi, no rales , no accessory muscle use Abdominal: soft, nontender to palpation, no guarding, no appreciable organomegaly Ext: no gross muscle atrophy, no edema, no contractures Neuro: CN II-XI grossly intact, Muslce strength 5/5 in all 4 extremities. Light touch intact in all 4 extremities. Psych: Alert, oriented, flat affect - Labs CBC & Chem 7: 03/23/17 07:49 03/23/17 07:49 Labs: Abnormal Lab Results - Last 24 Hours (Table) 03/22/17 03/22/17 03/23/17 Range/Units 11:57 17:08 07:49 RBC 4.16 L (4.30-5.90) m/uL Hgb 12.8 L (13.0-17.5) gm/dL Hct 38.4 L (39.0-53.0) % Plt Count 138 L (150-450) k/uL BUN (9-20) mg/dL POC Glucose (mg/dL) 101 H 73 L (75-99) mg/dL GGT (15-73) U/L AST (17-59) U/L ALT (21-72) U/L Total Protein (6.3-8.2) g/dL 03/23/17 Range/Units 07:49 RBC (4.30-5.90) m/uL Hgb (13.0-17.5) gm/dL Hct (39.0-53.0) % Plt Count (150-450) k/uL BUN 7 L (9-20) mg/dL POC Glucose (mg/dL) (75-99) mg/dL GGT 305 H (15-73) U/L AST 77 H (17-59) U/L ALT 77 H (21-72) U/L Total Protein 5.7 L (6.3-8.2) g/dL Assessment and Plan Assessment: acute methanol toxicity, level greater than 200 on admission - HD 03/21 and 03/22 - Continue with fomepizole q 12 hours now with HD is completed. Will need to continue until level is less and 20. Will also need to continue Leucovorin until methanol level is less and 20. - Await 6 am metahnol level and plan of methanol level at noon as results are delayed about 8 hours. - D/w poison control again 03/23 - Will need optho Eval as outpatient. - Physical therapy evaluation as can develop - Per article from [employer] " Symptom onset is usually delayed several weeks after methanol exposure. Common parkinsonian symptoms, such as tremor, cogwheel rigidity, stooped posture, shuffling gait, and hypokinesis, have been well described. In addition, the development of dystonia and corticospinal tract signs has been established. Several case reports have indicated symptom response to standard antiparkinsonian agents, particularly levodopa, amantadine , and bromocriptine. Muscle spasms have also been reported in methanol poisoning. As expected, this symptom responds poorly to traditional therapy. " Acute overdose with methanol and isopropyl alcohol - Supportive care - Hemodialysis completed - psychiatry recs - patient wants to discharge to [place] EtOH abuse with impending DTs -[facility] protocol -Thiamine replacement, folic acid replacement -Seizure precautions Tobacco abuse - nicotine replacement - cessation Alcoholic heapatitis, improving - follow liver function in AM Thrombocytopenia - likely reactive - follow CBC DVT prophylaxis: heparin sc Discussed with: Patient, nursing, Poison control Anticipated discharge: 24-[address]: home vs psych A total of 35 minutes was spent on the care of this complex patient more than 50 % of the time was spent in counseling the patient and coordination of care.
[2017-03-23] MEDS: PANTOPRAZOLE 40 MG TABLET PO SCH (11:19)
[2017-03-23] MEDS: FOLIC ACID 1 MG TAB PO SCH (11:20)
[2017-03-23] MEDS: THIAMINE 100 MG TAB PO SCH ×2 (11:20→16:17)
[2017-03-23] MEDS: LEUCOVORIN IV SCH ×4 (11:23→23:51)
[2017-03-23 12:25] LABS: Glucose,Whole Blood 111 mg/dL (75-99)
--- NOTE | 2017-03-23 13:01 | P.PN ---
Subjective patient is seen in follow-up for methanol poisoning. Patient drank a bottle of mouthwash as well as hand hub cutter apprentice. His methanol level was greater than 200. He has undergone 2 treatments of hemodialysis so far. His creatinine is stable at 0.96 today. No evidence of acidosis. He has been voiding. No hematuria or dysuria. Currently awake and alert. No vomiting or diarrhea. Oral intake is fair. He is also maintained on fomepizole. Poison control is aware. Methanol level is down to 27. Vital signs are stable. General: The patient appeared well nourished and normally developed. HEENT: Head exam is unremarkable. Neck is without jugular venous distension. LUNGS: Lungs are clear to auscultation and percussion. Breath sounds decreased. HEART: Rate and Rhythm are regular. First and second heart sounds normal. No murmurs, rubs or gallops. ABDOMEN: Abdominal exam reveals normal bowel sounds. Non-tender and non- distended. No evidence of peritonitis. EXTREMITITES: No clubbing, cyanosis, or edema. Objective - Vital Signs Vital signs: Vital Signs Temp 97.3 F L 03/23/17 07:00 Pulse 93 03/23/17 07:00 Resp 16 03/23/17 07:00 BP 126/68 03/23/17 07:00 Pulse Ox 95 03/23/17 07:00 Intake & Output 03/22/17 03/23/17 03/23/17 18:59 06:59 18:59 Output Total 2300 1250 Balance -2300 -1250 Output: Urine 2300 1250 Other: Voiding Method Urinal Toilet Toilet Urinal Urinal - Labs CBC & Chem 7: 03/23/17 07:49 03/23/17 07:49 Labs: Abnormal Lab Results - Last 24 Hours (Table) 03/22/17 03/23/17 03/23/17 Range/Units 17:08 07:49 07:49 RBC 4.16 L (4.30-5.90) m/uL Hgb 12.8 L (13.0-17.5) gm/dL Hct 38.4 L (39.0-53.0) % Plt Count 138 L (150-450) k/uL BUN 7 L (9-20) mg/dL POC Glucose (mg/dL) 73 L (75-99) mg/dL GGT 305 H (15-73) U/L AST 77 H (17-59) U/L ALT 77 H (21-72) U/L Total Protein 5.7 L (6.3-8.2) g/dL 03/23/17 Range/Units 12:22 RBC (4.30-5.90) m/uL Hgb (13.0-17.5) gm/dL Hct (39.0-53.0) % Plt Count (150-450) k/uL BUN (9-20) mg/dL POC Glucose (mg/dL) 111 H (75-99) mg/dL GGT (15-73) U/L AST (17-59) U/L ALT (21-72) U/L Total Protein (6.3-8.2) g/dL Assessment and Plan Plan: Assessment: #1. Acute methanol poisoning with methanol level greater than 200. His osmolar gap was also significantly elevated upon admission near 90. Also maintained on fomepizole per poison control recommendations. Status post 2 treatments of hemodialysis. #2. 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 Patient donated his kidney in December 2016 to his brother. #3. Elevated anion gap due to methanol poisoning. Improved. Plan: Hold off on dialysis today. Continue with fomepizole per poison control recommendations. Follow-up methanol level from today. Avoid nephrotoxic agents. Continue normal saline to be run at 150 mL an hour for now. Can likely discontinue dialysis catheter tomorrow.
[2017-03-23 17:15] LABS: Glucose,Whole Blood 85 mg/dL (75-99)
[2017-03-23 20:45] LABS: Glucose,Whole Blood 96 mg/dL (75-99)
[2017-03-24] MEDS: LORazepam 2 MG/ML INJ IV PRN ×11 (02:05→23:30)
[2017-03-24] MEDS: SODIUM CHLORIDE 0.9% 1,000 ML IV SCH ×4 (02:10→20:48)
[2017-03-24 02:12] LABS: Glucose,Whole Blood 128 mg/dL (75-99)
[2017-03-24] MEDS: LEUCOVORIN IV SCH ×4 (04:56→13:43)
[2017-03-24] MEDS: FOMEPIZOLE 1,500 MG in SODIUM CHLORIDE 0.9% 100 ML IVPB SCH (06:21)
[2017-03-24 06:23] LABS: HCT 39.4 % (39.0-53.0); MCH 30.9 pg (25.0-35.0); MCV 93.6 fL (80.0-100.0); Platelet Count 168 k/uL (150-450); RDW 15.2 % (11.5-15.5); WBC 7.8 k/uL (3.8-10.6)
[2017-03-24 06:35] LABS: ALT 89 U/L (21-72); AST 75 U/L (17-59); Albumin 3.6 g/dL (3.5-5.0); Alkaline Phosphatase 77 U/L (38-126); Anion Gap 10 mmol/L; Blood Urea Nitrogen 9 mg/dL (9-20); Calcium 9.1 mg/dL (8.4-10.2); Carbon Dioxide 24 mmol/L (22-30); Chloride 103 mmol/L (98-107); Glucose 115 mg/dL (74-99); Magnesium 1.7 mg/dL (1.6-2.3); Potassium 3.3 mmol/L (3.5-5.1); Sodium 137 mmol/L (137-145); Total Bilirubin 0.4 mg/dL (0.2-1.3); Total Protein 5.7 g/dL (6.3-8.2)
[2017-03-24 07:30] LABS: Glucose,Whole Blood 104 mg/dL (75-99)
[2017-03-24] MEDS: HEPARIN SODIUM,PORCINE 5,000 UNIT/ML 1 ML VIAL SQ SCH ×3 (09:12→22:33)
[2017-03-24] MEDS: PANTOPRAZOLE 40 MG TABLET PO SCH (09:12)
[2017-03-24] MEDS ORDERED: Potassium Replacement Protocol 1 EACH MISC MISCELLANE PRN (09:19)
[2017-03-24] MEDS ORDERED: POTASSIUM CHLORIDE ER 20 MEQ TAB.ER PO STA (09:19)
[2017-03-24] MEDS: ONDANSETRON 4 MG/2 ML VIAL IVP PRN (10:13)
[2017-03-24 12:31] LABS: Glucose,Whole Blood 90 mg/dL (75-99)
[2017-03-24] MEDS: THIAMINE 100 MG TAB PO SCH ×2 (13:03→16:52)
[2017-03-24] MEDS: FOLIC ACID 1 MG TAB PO SCH (13:03)
--- NOTE | 2017-03-24 13:38 | P.PN ---
Subjective Progress Note Date: 03/24/17 Principal diagnosis: Patient is a 36-year-old male past medical history of alcoholism and tobacco abuse who presented to the emergency department from [place] for evaluation. The patient had been drinking Vodka and when he ran out he drink a bottle of hand pile driving setter, 3 cups of natures alcohol, and a bottle of scope mouthwash. In the ER he underwent an extensive evaluation. He was noted to have elevated serum osmolality as well as positive anion gap. He did not have any acidosis. His vital signs were stable. Laboratory analysis is otherwise unremarkable. Poison control was contacted who recommended obtaining an acetone level, ethanol level, methanol level, and ethylene glycol level. he was started on IV fluids and fomepizole. He was admitted for further monitoring and care. he has been drinking 1-1/2 fifths of vodka daily for the last 6 weeks. The morning of 03/21 his methanol level came back at greater than 200 and he has found to have a positive acetone. Poison control contacted us and recommended urgent hemodialysis as well as continued fomepizole dosing. He underwent HD on 03/21. He is methanol level was 77 on 03/22 and HD was again planned. Methanol level on 03/23 was 29. His blurry vision has resolved. Discussed with poison control morning of 03/23 fomepizole and lucovorin until methanol level is less than 20. patient feeling better, was talking to social services counselor had reportedly has nowhere to go, and loss is better at [facility]. Unable to go there for another 2 weeks, patient complaining of mild nausea and mild tremors. Otherwise no acute events, methanol level trending down Objective - Vital Signs Vital signs: Vital Signs Temp 97.1 F L 03/24/17 07:00 Pulse 83 03/24/17 07:00 Resp 18 03/24/17 07:00 BP 137/78 03/24/17 07:00 Pulse Ox 94 L 03/24/17 07:00 Intake & Output 03/23/17 03/24/17 03/24/17 18:59 06:59 18:59 Intake Total 960 Output Total 1600 Balance 960 -1600 Intake: Oral 960 Output: Urine 1600 Other: Voiding Method Toilet Urinal # Voids 2 3 # Bowel Movements 1 0 - Exam Constitutional: No acute distress, conversant, pleasant Eyes: Anicteric sclerae, moist conjunctiva, no lid-lag, PERRLA ENMT: NC/AT,Oropharynx clear, no erythema, exudates Neck:Supple, FROM, no masses, or JVD, No carotid bruits; No thyromegaly Lungs: Clear to auscultation, Clear to percussion, Normal respiratory effort, no accessory muscle use Cardiovascular: Heart regular in rate and rhythm, No murmurs, gallops, or rubs no peripheral edema Abdominal: Soft Nontender, nom distended, no guarding, no rebound or rigidity, Normoactive bowel sounds No hepatomegaly, No splenomegaly, No palpable mass No abdominal wall hernia noted Skin: Normal temperature, tone, texture, turgor, No induration No subcutaneous nodules, No rash, lesions, No ulcers Extremities:No digital cyanosis No clubbing, Pedal pulses intact and symmetrical Radial pulses intact and symmetrical Normal gait and station, No calf tenderness Psychiatric: Alert and oriented to person, place and time, Appropriate affect Intact judgement Neuro: Muscles Strength 5/5 in all 4 extremities, Sensation to light touch grossly present throughout, Cranial nerves II-XII grossly intact. No focal sensory deficits - Labs CBC & Chem 7: 03/24/17 06:08 03/24/17 06:08 Labs: Abnormal Lab Results - Last 24 Hours (Table) 03/24/17 03/24/17 03/24/17 Range/Units 02:10 06:08 06:08 RBC 4.20 L (4.30-5.90) m/uL Potassium 3.3 L (3.5-5.1) mmol/L Glucose 115 H (74-99) mg/dL POC Glucose (mg/dL) 128 H (75-99) mg/dL AST 75 H (17-59) U/L ALT 89 H (21-72) U/L Total Protein 5.7 L (6.3-8.2) g/dL 03/24/17 Range/Units 07:17 RBC (4.30-5.90) m/uL Potassium (3.5-5.1) mmol/L Glucose (74-99) mg/dL POC Glucose (mg/dL) 104 H (75-99) mg/dL AST (17-59) U/L ALT (21-72) U/L Total Protein (6.3-8.2) g/dL Assessment and Plan Assessment: acute methanol toxicity, level greater than 200 on admission - HD 03/21 and 03/22 - discontinue fomepizole and leucovorin as the patient's methanol level is 17 - Will need optho Eval as outpatient. - Physical therapy evaluation as can develop - Per article from [employer] " Symptom onset is usually delayed several weeks after methanol exposure. Common parkinsonian symptoms, such as tremor, cogwheel rigidity, stooped posture, shuffling gait, and hypokinesis, have been well described. In addition, the development of dystonia and corticospinal tract signs has been established. Several case reports have indicated symptom response to standard antiparkinsonian agents, particularly levodopa, amantadine , and bromocriptine. Muscle spasms have also been reported in methanol poisoning. As expected, this symptom responds poorly to traditional therapy. " Acute overdose with methanol and isopropyl alcohol - Supportive care methanol level 17 leucovorin and fomepizole discontinued - Hemodialysis completed (will need his dialysis catheter discontinued per nephrology) - awaiting psychiatry recs now the patient is medically stable - patient lost his bed at [facility] unable to be placed there for another 2 weeks EtOH abuse with mild EtoH Withdrwals -[facility] protocol -Thiamine replacement, folic acid replacement -Seizure precautions Tobacco abuse - nicotine replacement - cessation Alcoholic heapatitis, improving - follow liver function in AM Thrombocytopenia - likely reactive - follow CBC DVT prophylaxis: heparin sc Discussed with: Patient, nursing, Poison control
[2017-03-24 17:26] LABS: Glucose,Whole Blood 81 mg/dL (75-99)
--- NOTE | 2017-03-24 18:04 | CONS ---
CONSULTATION DATE OF CONSULTATION: 03/24/2017 PURPOSE OF CONSULTATION: Evaluate for alcohol dependence and acute alcohol withdrawal. INTERVAL HISTORY: Patient has been doing fair. He is now off of hemodialysis. He says that he has made contact with [facility] and understands that the bed for rehabilitation is available in 2 weeks. Between now and then he does not have a place to live. He does acknowledge that he is at risk for drinking when he gets out in the community. At this point, 1 discharge option would be for him to go into a longterm. He says one thing that would minimize his drinking is the fact that he just does not have any money. On the other hand, he also does not have much in regards to support in the community where he could be helped towards maintaining sobriety. His mood is down. He has a bleak outlook. He does have a significant history of ongoing alcohol use. When I saw the patient, he gave fair eye contact. Psychomotor activity was slowed. Speech was monotone. He answered questions with brief responses. His affect was flat. Mood depressed. He seemed moderately distressed. ASSESSMENT: I would diagnose the patient with major depression in addition to alcohol dependence and acute alcohol withdrawal. At this point, I will start the patient on Zyprexa 5 mg 3 times a day. The aim is Zyprexa as to help reduce physiologic stress response as it relates to acute alcohol withdrawal issues. In addition Zyprexa may benefit his mood. In additional start the patient on ReVia 50 mg a day. ReVia is indicated to help reduce risk for relapse. The patient may be appropriate for a short inpatient stay to help stabilize some of his issues related to mood disorder and to set up some interim followup while he awaits a drug rehab program. We would need to coordinate with [facility] or [facility] nurse will address the issue. MMODL / IJN: [id number] /
[2017-03-24] MEDS: NALTREXONE HCL 50 MG TAB PO SCH (18:54)
[2017-03-25] MEDS: LORazepam 2 MG/ML INJ IV PRN ×5 (00:40→22:03)
[2017-03-25 01:50] LABS: Glucose,Whole Blood 91 mg/dL (75-99)
[2017-03-25] MEDS: SODIUM CHLORIDE 0.9% 1,000 ML IV SCH (06:20)
[2017-03-25] MEDS: PANTOPRAZOLE 40 MG TABLET PO SCH (07:48)
[2017-03-25] MEDS: HEPARIN SODIUM,PORCINE 5,000 UNIT/ML 1 ML VIAL SQ SCH ×3 (07:48→22:56)
[2017-03-25] MEDS: NALTREXONE HCL 50 MG TAB PO SCH (07:48)
[2017-03-25 07:54] LABS: Glucose,Whole Blood 83 mg/dL (75-99)
--- NOTE | 2017-03-25 09:54 | P.DS ---
Providers Date of admission: 03/20/17 16:40 Expected date of discharge: 03/25/17 Attending physician: Svetlana De Dios MD Consults: 03/20/17 18:08 Consult Physician Routine Consulting Provider: Navdeep Arevalo Consult Reason/Comments: suicide attempt, ETOH abuse Do you want consulting provider notified?: Yes 03/21/17 09:50 Consult Physician Stat Consulting Provider: Jg Davis Consult Reason/Comments: overdose, methanol >200 Do you want consulting provider notified?: Already Contacted 03/21/17 09:51 Consult Physician Stat Consulting Provider: Ori Gustafson Consult Reason/Comments: stat hemodialysis Do you want consulting provider notified?: Yes Primary care physician: Stated None - Discharge Diagnosis(es) (1) Methanol poisoning Current Visit: Yes Status: Acute (2) Alcohol dependence with uncomplicated withdrawal Current Visit: Yes Status: Acute (3) Depression Current Visit: Yes Status: Acute (4) Suicidal thoughts Current Visit: Yes Status: Acute (5) Alcoholic hepatitis Current Visit: Yes Status: Acute Hospital Course: Patient is a 36-year-old male past medical history of alcoholism and tobacco abuse who presented to the emergency department from [facility] for evaluation. The patient had been drinking Vodka and when he ran out he drink a bottle of hand professor of german, 3 cups of natures alcohol, and a bottle of scope mouthwash. In the ER he underwent an extensive evaluation. He was noted to have elevated serum osmolality as well as positive anion gap. He did not have any acidosis. His vital signs were stable. Laboratory analysis is otherwise unremarkable. Poison control was contacted who recommended obtaining an acetone level, ethanol level, methanol level, and ethylene glycol level. he was started on IV fluids and fomepizole. He was admitted for further monitoring and care. he has been drinking 1-1/2 fifths of vodka daily for the last 6 weeks. The morning of 03/21 his methanol level came back at greater than 200 and he has found to have a positive acetone. Poison control contacted us and recommended urgent hemodialysis as well as continued fomepizole dosing. He underwent HD on 03/21. He is methanol level was 77 on 03/22 and he received HD again. Methanol level on 03/23 was 29. Initially the patient was noted to have a reactive thrombocytopenia this eventually resolved, he was also noted to have a alcoholic hepatitis with elevated serum transaminases. His blurry vision has resolved. Discussed with poison control morning of 03/23 fomepizole and lucovorin until methanol level was less than 20. The patient was noted to have mild alcohol withdrawals and was given Ativan based on the symptom triggered CIWA protocol. Psychiatry was consulted and the patient was seen by Dr. Gibson who recommended inpatient psychiatric treatment, the patient was however denied secondary to insurance issues and he subsequently transferred instead to [facility]. The patient is medically stable to o enter a residential substance abuse treatment program. This discharge process took approximately 35 minutes Per article from [employer] " Symptom onset is usually delayed several weeks after methanol exposure. Common parkinsonian symptoms, such as tremor, cogwheel rigidity, stooped posture, shuffling gait, and hypokinesis, have been well described. In addition, the development of dystonia and corticospinal tract signs has been established. Several case reports have indicated symptom response to standard antiparkinsonian agents, particularly levodopa, amantadine , and bromocriptine. Muscle spasms have also been reported in methanol poisoning. As expected, this symptom responds poorly to traditional therapy Patient Condition at Discharge: Stable Plan - Discharge Summary Discharge Rx Participant: No New Discharge Prescriptions: New Calcium Carbonate [Tums] 500 mg PO TID PRN chew PRN Reason: Heartburn Folic Acid 1 mg PO DAILY@1200 tab Nicotine 21Mg/24Hr Patch [Habitrol] 1 patch TRANSDERM DAILY patch Pantoprazole [Protonix] 40 mg PO AC-BRKFST tablet. Thiamine [Vitamin B-1] 100 mg PO BID@1200,1700 tab Discharge Medication List Calcium Carbonate [Tums] 500 mg PO TID PRN chew 03/25/17 [Rx] Folic Acid 1 mg PO DAILY@1200 tab 03/25/17 [Rx] Nicotine 21Mg/24Hr Patch [Habitrol] 1 patch TRANSDERM DAILY patch 03/25/17 [Rx] Pantoprazole [Protonix] 40 mg PO AC-BRKFST tablet. 03/25/17 [Rx] Thiamine [Vitamin B-1] 100 mg PO BID@1200,1700 tab 03/25/17 [Rx] Follow up Appointment(s)/Referral(s): Kael Hameed MD [STAFF PHYSICIAN] - 1 Week Jg Davis DO [STAFF PHYSICIAN] - 1 Week Patient Instructions/Handouts: How to Stop Smoking (DC), Acute Kidney Injury ( GEN), Abuse of Alcohol (DC) Activity/Diet/Wound Care/Special Instructions: NO smoking, NO alcohol. Literature given. Activity as tolerated. Regular diet. Outpatient community mental health ordered. Discharge Disposition: TRANSFER TO PSYCH HOSP/UNIT
--- NOTE | 2017-03-25 09:57 | P.DS ---
Providers Date of admission: 03/20/17 16:40 Attending physician: Svetlana De Dios MD Consults: 03/20/17 18:08 Consult Physician Routine Consulting Provider: Navdeep Arevalo Consult Reason/Comments: suicide attempt, ETOH abuse Do you want consulting provider notified?: Yes 03/21/17 09:50 Consult Physician Stat Consulting Provider: Jg Davis Consult Reason/Comments: overdose, methanol >200 Do you want consulting provider notified?: Already Contacted 03/21/17 09:51 Consult Physician Stat Consulting Provider: Ori Gustafson Consult Reason/Comments: stat hemodialysis Do you want consulting provider notified?: Yes Primary care physician: Stated None - Discharge Diagnosis(es) (1) Methanol poisoning Current Visit: Yes Status: Acute (2) Alcohol dependence with uncomplicated withdrawal Current Visit: Yes Status: Acute (3) Alcoholic hepatitis Current Visit: Yes Status: Acute (4) Depression Current Visit: Yes Status: Acute (5) Suicidal thoughts Current Visit: Yes Status: Acute Patient Condition at Discharge: Stable Plan - Discharge Summary Discharge Rx Participant: No New Discharge Prescriptions: No Action No Known Home Medications [No Known Home Medications] Discharge Medication List No Known Home Medications [No Known Home Medications] 03/20/17 [History] Follow up Appointment(s)/Referral(s): Kael Hameed MD [STAFF PHYSICIAN] - 1 Week Jg Davis DO [STAFF PHYSICIAN] - 1 Week Patient Instructions/Handouts: How to Stop Smoking (DC), Acute Kidney Injury ( GEN), Abuse of Alcohol (DC) Activity/Diet/Wound Care/Special Instructions: NO smoking, NO alcohol. Literature given. Possible [place] on discharge. Activity as tolerated. Regular diet.
[2017-03-25] MEDS: THIAMINE 100 MG TAB PO SCH ×2 (11:51→16:45)
[2017-03-25] MEDS: FOLIC ACID 1 MG TAB PO SCH (11:51)
[2017-03-25 12:43] LABS: Glucose,Whole Blood 80 mg/dL (75-99)
--- NOTE | 2017-03-25 14:54 | PN ---
PROGRESS NOTE Patient is seen for followup for methanol intoxication. He has received 2 treatments of hemodialysis. Patient's temporary dialysis catheter was discontinued this morning. He is currently awake, comfortable, not in any acute distress. Blood pressure 132/87, heart rate 77 per minute. He is afebrile. Examination of the heart, S1, S2. Examination of the lungs, bilateral breath sounds are heard. Abdomen is soft, nontender. Examination of the lower extremities showed no evidence of edema. LABS: Show serum creatinine 1.2 from yesterday. Serum potassium was 3.3 yesterday. ASSESSMENT: 1. Acute methanol intoxication, status post 2 hemodialysis treatments, currently resolved. Methanol level is 17 which is below the toxic level. His dialysis catheter has been discontinued. We can repeat another renal profile in a.m. or as outpatient if patient is discharged. 2. History of EtOH abuse. 3. Alcoholic hepatitis, currently improving. PLAN: The patient is stable for discharge. He will need outpatient followup. Agree with evaluation as well as outpatient. MMODL / IJN: [id number] /
--- NOTE | 2017-03-25 16:09 | CONS ---
CONSULTATION DATE OF CONSULTATION: 03/25/2017. PURPOSE FOR CONSULTATION: Evaluate for alcohol dependence and acute alcohol withdrawal. INTERVAL HISTORY: Patient has been doing fair. He slept fairly well last night. Today he has been up. I had discussed with the patient yesterday about the option of a stay in an inpatient psychiatric unit for some initial stabilization regarding psychotropic medications in anticipation of his going into a substance abuse treatment program. He has made contact with [facility] and my understanding is that a bed will be available within 2 weeks. The patient understands that if he were to go to an inpatient unit, it would require his being transferred to a facility in [facility]. The patient was reluctant to be hospitalized there because it would put him at some distance from the substance abuse program that he is anticipating admission to. As such, the patient is comfortable with the idea of going to a halfway for a short-term stay and then admission to [facility]. It is noted that Dr. Miranda has documented issues related to methanol poisoning. He has also been assessed as having uncomplicated withdrawal on admission. The patient had made statements about thoughts of self-harm. When this was discussed with the patient in reference to discharge to the community, the patient reported no impulse or thoughts toward harm to self or others. He was able to identify that a risk for him is slipping back into drinking. He says at this point he does not have money to be able to purchase any alcohol. When given the option of a transfer to [facility] for an inpatient psychiatric stay versus discharge and outpatient referral, the patient was quite clear that he preferred the outpatient referrals that have been set up. He believes that he will be safe and has motivation for followup with substance abuse treatment. MMVIVIANAL / CARRIEN: [id number] /
[2017-03-25 17:45] LABS: Glucose,Whole Blood 84 mg/dL (75-99)
[2017-03-25 20:29] LABS: Glucose,Whole Blood 77 mg/dL (75-99)
[2017-03-25] MEDS ORDERED: VANCOMYCIN 1,000 MG in SODIUM CHLORIDE 0.9% 250 ML IVPB STA (22:21)
--- NOTE | 2017-03-25 22:28 | P.PN ---
Progress Note - Text Progress Note Date: 03/25/17 Hospitalist Interval Note Called to see patient regarding nonfunctioning IV that had purulent drainage when removed Patient seen and examined at bedside. He complains of some pain at prior IV site and redness. Him and the nurse are unsure when it started. The nurse provided to me over phone that patient had been refusing to have his IV changed. She went to flush Ativan and was unable to do so as the IV was occluded. She therefore started a new IV in his right wrist. It when she was removing the old IV she noted some purulent drainage from the site and redness of his arm. Vital signs reviewed General: [non toxic], [no distress], [appears at stated age] Derm: + Warmth, + erythema, + palpable vein around prior left IV site. No further purulent drainage able to the breast. Head: [atraumatic], [normocephalic], [symmetric] Psych: [Alert], [oriented], [appropriate affect] Assessment/Plan: Thrombophlebitis -IV vancomycin 1 -Oral Bactrim in a.m. -Warm compresses to area -No indication for culture at this time as no further purulent drainage able to be expressed. This is an update note for patient , for full note on 03/25 see progress note by Dr. Miranda. There is no charge associated with this note.
[2017-03-25 22:35] VITALS: RESP 16
[2017-03-26] MEDS: LORazepam 2 MG/ML INJ IV PRN ×2 (00:02→12:25)
[2017-03-26 07:54] LABS: Glucose,Whole Blood 82 mg/dL (75-99)
[2017-03-26] MEDS: NALTREXONE HCL 50 MG TAB PO SCH (08:34)
[2017-03-26] MEDS: PANTOPRAZOLE 40 MG TABLET PO SCH (08:35)
[2017-03-26] MEDS: HEPARIN SODIUM,PORCINE 5,000 UNIT/ML 1 ML VIAL SQ SCH (08:35)
[2017-03-26] MEDS: ONDANSETRON 4 MG/2 ML VIAL IVP PRN (08:35)
[2017-03-26 08:54] VITALS: BP 135/80; PULSE 98; TEMP 96
[2017-03-26] MEDS ORDERED: SULFAMETHOX-TMP 800-160MG 1 EACH TAB PO SCH (09:00)
[2017-03-26] MEDS ORDERED: NICOTINE 21MG/24HR PATCH TRANSDERM SCH (09:00)
--- NOTE | 2017-03-26 09:37 | P.PN ---
Subjective Progress Note Date: 04/12/17 Principal diagnosis: Patient is a 36-year-old male past medical history of alcoholism and tobacco abuse who presented to the emergency department from [facility] for evaluation. The patient had been drinking Vodka and when he ran out he drink a bottle of hand fuse assembler, 3 cups of natures alcohol, and a bottle of scope mouthwash. In the ER he underwent an extensive evaluation. He was noted to have elevated serum osmolality as well as positive anion gap. He did not have any acidosis. His vital signs were stable. Laboratory analysis is otherwise unremarkable. Poison control was contacted who recommended obtaining an acetone level, ethanol level, methanol level, and ethylene glycol level. he was started on IV fluids and fomepizole. He was admitted for further monitoring and care. he has been drinking 1-1/2 fifths of vodka daily for the last 6 weeks. The morning of 03/21 his methanol level came back at greater than 200 and he has found to have a positive acetone. Poison control contacted us and recommended urgent hemodialysis as well as continued fomepizole dosing. He underwent HD on 03/21. He is methanol level was 77 on 03/22 and HD was again planned. Methanol level on 03/23 was 29. His blurry vision has resolved. Discussed with poison control morning of 03/23 fomepizole and lucovorin until methanol level is less than 20. patient feeling better, was talking to director social service had reportedly has nowhere to go, lost his bed at [facility] Unable to go there for another 2 weeks, patient complaining of mild nausea and mild tremors. Patient seen by psychiatry and recommended to have inpatient psychiatric treatment on the mental health unit Otherwise no acute events, methanol level trending down Objective - Vital Signs Vital signs: Vital Signs Temp 96.0 F L 03/26/17 07:00 Pulse 98 03/26/17 07:00 Resp 16 03/26/17 07:00 BP 135/80 03/26/17 07:00 Pulse Ox 96 03/26/17 07:00 Intake & Output 03/25/17 03/26/17 03/26/17 18:59 06:59 18:59 Output Total 500 Balance -500 Output: Urine 500 Other: Voiding Method Toilet Toilet Urinal # Voids 1 1 - Exam Constitutional: No acute distress, conversant, pleasant Eyes: Anicteric sclerae, moist conjunctiva, no lid-lag, PERRLA ENMT: NC/AT,Oropharynx clear, no erythema, exudates Neck:Supple, FROM, no masses, or JVD, No carotid bruits; No thyromegaly Lungs: Clear to auscultation, Clear to percussion, Normal respiratory effort, no accessory muscle use Cardiovascular: Heart regular in rate and rhythm, No murmurs, gallops, or rubs no peripheral edema Abdominal: Soft Nontender, nom distended, no guarding, no rebound or rigidity, Normoactive bowel sounds No hepatomegaly, No splenomegaly, No palpable mass No abdominal wall hernia noted Skin: Normal temperature, tone, texture, turgor, No induration No subcutaneous nodules, No rash, lesions, No ulcers Extremities:No digital cyanosis No clubbing, Pedal pulses intact and symmetrical Radial pulses intact and symmetrical Normal gait and station, No calf tenderness Psychiatric: Alert and oriented to person, place and time, Appropriate affect Intact judgement Neuro: Muscles Strength 5/5 in all 4 extremities, Sensation to light touch grossly present throughout, Cranial nerves II-XII grossly intact. No focal sensory deficits - Labs CBC & Chem 7: 03/24/17 06:08 03/24/17 06:08 Assessment and Plan Assessment: acute methanol toxicity, level greater than 200 on admission - HD 03/21 and 03/22 - discontinue fomepizole and leucovorin as the patient's methanol level is 17 - Will need optho Eval as outpatient. - Physical therapy evaluation as can develop - Per article from [employer] " Symptom onset is usually delayed several weeks after methanol exposure. Common parkinsonian symptoms, such as tremor, cogwheel rigidity, stooped posture, shuffling gait, and hypokinesis, have been well described. In addition, the development of dystonia and corticospinal tract signs has been established. Several case reports have indicated symptom response to standard antiparkinsonian agents, particularly levodopa, amantadine , and bromocriptine. Muscle spasms have also been reported in methanol poisoning. As expected, this symptom responds poorly to traditional therapy. " Acute overdose with methanol and isopropyl alcohol - Supportive care methanol level 17 leucovorin and fomepizole discontinued - Hemodialysis completed (will need his dialysis catheter discontinued per nephrology) - awaiting psychiatry recs now the patient is medically stable - patient lost his bed at [facility] unable to be placed there for another 2 weeks EtOH abuse with mild EtoH Withdrwals -WA protocol -Thiamine replacement, folic acid replacement -Seizure precautions Tobacco abuse - nicotine replacement - cessation Alcoholic heapatitis, improving - follow liver function in AM Thrombocytopenia - likely reactive - follow CBC Disposition * Patient was supposed to be transferred to the mental health unit here at [facility] but was unable to do so as patient's insurance will not pay for admission to [facility], social work contacted [facility] and they have accepted him hopefully he'll be transferred there today and if not he will go on the morning (possible unavoidable day) DVT prophylaxis: heparin sc Discussed with: Patient, nursing, Poison control (1) Methanol poisoning Current Visit: Yes Status: Acute Code(s): T51.1X1A - TOXIC EFFECT OF METHANOL, ACCIDENTAL (UNINTENTIONAL), INIT SNOMED Code(s): 743132388 (2) Alcohol dependence with uncomplicated withdrawal Current Visit: Yes Status: Acute Code(s): F10.230 - ALCOHOL DEPENDENCE WITH WITHDRAWAL, UNCOMPLICATED SNOMED Code(s): 84227114 (3) Depression Current Visit: Yes Status: Acute Code(s): F32.9 - MAJOR DEPRESSIVE DISORDER , SINGLE EPISODE, UNSPECIFIED SNOMED Code(s): 08705559 (4) Suicidal thoughts Current Visit: Yes Status: Acute Code(s): R45.851 - SUICIDAL IDEATIONS SNOMED Code(s): 9229080 (5) Alcoholic hepatitis Current Visit: Yes Status: Acute Code(s): K70.10 - ALCOHOLIC HEPATITIS WITHOUT ASCITES SNOMED Code(s): 832899955
[2017-03-26 11:58] LABS: Glucose,Whole Blood 95 mg/dL (75-99)
[2017-03-26] MEDS: FOLIC ACID 1 MG TAB PO SCH (12:26)
[2017-03-26] MEDS: THIAMINE 100 MG TAB PO SCH (12:26)
--- NOTE | 2017-03-28 11:42 | CDI ---
Last Revision, January 2017 Date: 03/28/2017 11:16:00 AM From: MARGARETTE Young; Nicho Rivera Admit Date: 03/20/2017 4:40:00 PM Patient Name: Regulo Rojas Visit Number: [id number] Discharge Date: 03/26/2017 ATTENTION: The Clinical Documentation Specialists (CDI) and [facility] Coding Staff appreciate your assistance in clarifying documentation. Please respond to the clarification below the line at the bottom and electronically sign. The CDI & [facility] Coding staff will review the response and follow-up if needed. Please note: Queries are made part of the Legal Health Record. If you have any questions, please contact the author of this message via ITS. Dr. Jackie Barbour Patient is admitted in alcohol poisoning. Patients IV was nonfunctioning and a new one was placed in the right wrist. At the site of prior IV there is pain and redness. Thrombophlebitis is documented. Treatment included IV vancomycin , oral bactrim and warm compresses to the area. In your clinical judgment, is there any relationship between the IV and the thrombophlebitis? An expected post-procedural or post-surgical condition (not clinically significant or related to) Integral to the procedure An unexpected post-procedural or post-surgical condition related to surgical care Other, please specify Clinically unable to determine \ If you have a question about this query, please contact Nicho Rivera at [phone] between 8am and 5pm. JUAN
== END 2017-03-26 13:43 | DRG 918 ==
LOC: EC 13:35 → 4MS4W 16:40
PROVIDERS: ADMIT Internal Medicine; ATTEND Internal Medicine
PROC: 06HM33Z Insertion of Infusion Device into Right Femoral Vein, Percutaneous Approach (ICD-10-PCS; 2017-03-21 11:37)
PROC: 5A1D70Z Performance of Urinary Filtration, Intermittent, Less than 6 Hours Per Day (ICD-10-PCS; principal; 2017-03-22)
DX: T51.1X1A Toxic effect of methanol, accidental (unintentional), initial encounter (principal); F10.231 Alcohol dependence with withdrawal delirium; D69.6 Thrombocytopenia, unspecified; I80.8 Phlebitis and thrombophlebitis of other sites; R45.851 Suicidal ideations; T49.6X1A Poisoning by otorhinolaryngological drugs and preparations, accidental (unintentional), initial encounter; F17.200 Nicotine dependence, unspecified, uncomplicated; F32.9 Major depressive disorder, single episode, unspecified; F43.10 Post-traumatic stress disorder, unspecified; K70.10 Alcoholic hepatitis without ascites; N18.2 Chronic kidney disease, stage 2 (mild); Z80.7 Family history of other malignant neoplasms of lymphoid, hematopoietic and related tissues; Z82.49 Family history of ischemic heart disease and other diseases of the circulatory system; Z90.5 Acquired absence of kidney
CPT/HCPCS: 36415; 36556; 36580; 77001; 80053; 80306; 80320; 82009; 82010; 82150; 82977; 83520; 83605; 83690; 83735; 83930; 84100; 84600; 85025; 85027; 85610; 87340; 90935; 93005; 96365; 96366; 96368; 96372; 96375; 96376; 99285